=== PATIENT | male | born 1940 | race Caucasian/White ===

== ENCOUNTER 2018-05-29 20:42 | Observation (INO) | payer MEDICARE ==
[2018-05-29 21:52] LABS: Troponin I Less than 0.010 ng/mL (< 0.028)
[2018-05-30 00:27] VITALS: TEMP 97.7
[2018-05-30] MEDS ORDERED: Acetaminophen 325 MG TAB PO PRN (00:29)
[2018-05-30] MEDS ORDERED: Senokot S 8.6-50 MG TAB PO PRN (00:29)
[2018-05-30] MEDS ORDERED: Nitroglycerin 0.4 MG TAB (25 Tab Bottle) PO PRN (00:29)
[2018-05-30] MEDS ORDERED: Acetaminophen 650 MG Suppository PR PRN (00:29)
--- NOTE | 2018-05-30 00:55 | HP ---
PRIMARY CARE PHYSICIAN: Freedom Reddy D.O. CHIEF COMPLAINT: Chest discomfort. HISTORY OF PRESENT ILLNESS: Mr. Nguyen is a pleasant 77-year-old gentleman who was seen at [facility] on 05/30/2018 following transfer from the emergency room at [facility]. He reports that he ate chili, 2 nights ago. Following that, he developed chest discomfort. He descr ibes it as a vibrating sensation over the left side of his chest, on and off, lasting about 10 second s, no known aggravating or relieving factors, not accompanied by shortness of breath, nausea, or ligh theadedness. He does report that he has been having lower extremity swelling. He saw his primary care provider 2 days ago and received an injection as well as a new medication, presumably furosemide. The vibrating sensation is nonradiating. REVIEW OF SYSTEMS: All other systems reviewed and found to be negative. PAST MEDICAL HISTORY: Significant for coronary artery disease, status post PCI with 2 stents, prosta te cancer treated with surgery, dyslipidemia, and hypertension. PAST SURGICAL HISTORY: Prostatectomy and PCI with coronary stents. PSYCHIATRIC HISTORY: Depression. SOCIAL HISTORY: Patient denies tobacco use, alcohol use, or recreational drug use. FAMILY HISTORY: Heart disease in his brother. ALLERGIES: No known drug allergies. CURRENT MEDICATIONS: Aspirin 81 mg daily, atorvastatin 80 mg daily, Coreg 25 mg 2 times a day, furos emide 20 mg daily, lisinopril/hydrochlorothiazide 1 tablet daily, and mirtazapine 30 mg at bedtime. PHYSICAL EXAMINATION: GENERAL: Mr. Nguyen is awake and alert, not in acute distress. VITAL SIGNS: Blood pressure is 129/64, pulse 60, respiratory rate 18, and oxygen saturation 95% on r oom air. He is afebrile. EYES: No scleral icterus. No conjunctival pallor. ENT: Moist mucosal membranes, no oropharyngeal erythema or exudates. NECK: Supple, nontender, trachea is midline. RESPIRATORY: Accessory muscles of breathing are not active. Chest wall movements are symmetric bila terally. LUNGS: Clear to auscultation without wheeze, rhonchi, or crepitations. CARDIOVASCULAR: S1 and S2 are heard, regular. Peripheral pulses palpable. No carotid bruit, no per icardial rub. ABDOMEN: Soft, distended, nontender, bowel sounds are heard. NEUROLOGIC: Cranial nerves II through XII intact. Deep tendon reflexes are 2+. MUSCULOSKELETAL: Power is 5/5 in all 4 extremities. He has bilateral lower extremity edema. SKIN: No rashes or subcutaneous nodules. LYMPHATIC: No cervical lymphadenopathy. PSYCHIATRIC: Normal mood, normal affect, patient is oriented to person, place, and time. LABORATORY DATA: Mr. Nguyen's labs and investigations were reviewed. I reviewed his electrocardiogr am, which shows normal sinus rhythm, no ST changes to suggest an acute coronary syndrome. I also rev iewed his chest x-ray, which does not show any pulmonary infiltrates. He has an unremarkable CBC, un remarkable comprehensive metabolic profile, normal troponin I, normal BNP, and normal creatinine. ASSESSMENT AND PLAN: Mr. Nguyen is a pleasant 77-year-old gentleman who was seen at [facility] on 05/30/2018. His problem list includes: 1. Chest discomfort: Mr. Nguyen is presenting with chest discomfort that is atypical for cardiac pa in. He will be admitted to the hospital for air sampling and monitoring and rechecking cardiac enzymes. Cardi ology service will be consulted for opinion and help with managing his symptoms. 2. Dyslipidemia: We will continue statin. 3. Coronary artery disease. Continue aspirin and beta tylor. 4. Hypertension: Resume home medications, monitor vital signs and titrate antihypertensives as need ed. Many thanks for allowing me to participate in Mr. Stewart' care. Please feel free to contact me with any questions or concerns. LEVEL OF RISK: High. LEVEL OF COMPLEXITY: High.
[2018-05-30 00:58] LABS: Troponin I Less than 0.010 ng/mL (< 0.028)
[2018-05-30 03:46] LABS: #Basophils 0.1 thou/uL (0.0-0.2); #Eosinphils 0.1 thou/uL (0.0-0.7); #Lymphocytes 1.5 thou/uL (1.20-3.40); #Monocytes 0.6 thou/uL (0.11-0.59); #Neutrophils 5.4 thou/uL (1.40-6.50); %Basophils 1.1 % (0.0-1.0); %Eosinophils 1.3 % (0.0-10.0); %Lymphocytes 19.7 % (21.0-51.0); %Monocytes 7.3 % (0.0-10.0); %Neutrophils 70.6 % (42.0-75.0); Hemoglobin 14.3 g/dL (14.0-18.0); Mean Corpuscular HGB CONC 33.4 g/dL (32.0-36.0); Mean Corpuscular Hemoglobin 32.6 pg (27.0-31.0); Mean Corpuscular Volume 97.7 fL (78.0-98.0); Mean Platelet Volume 8.4 fL (7.4-10.4); Platelet Count 225 thou/uL (130-400); RBC Distribution Width 11.8 % (11.5-14.5); Red Blood Cell (RBC) Count 4.38 mill/uL (4.70-6.10); White Blood Cell (WBC) Count 7.6 thou/uL (4.8-10.8)
[2018-05-30 03:54] LABS: Anion Gap 12 mmol/L (10-20); BUN (Urea Nitrogen) 16 mg/dL (8.4-25.7); Calc. Creatinine Clearance 94 mL/min (70-130); Carbon Dioxide 29 mmol/L (23-31); Chloride 105 mmol/L (98-107); Estimated GFR-MDRD 86; Glucose 105 mg/dL (83-110); Potassium 3.6 mmol/L (3.5-5.1); Sodium 142 mmol/L (136-145)
[2018-05-30] MEDS ORDERED: Furosemide 20 MG TAB PO SCH (09:00)
[2018-05-30] MEDS ORDERED: Enoxaparin Sodium 40 MG/0.4 ML SYRINGE SC SCH (09:00)
[2018-05-30] MEDS ORDERED: Aspirin 81 mg Enteric Coated Tablet PO SCH (09:00)
[2018-05-30] MEDS ORDERED: Prevnar 13-Val Conj/PF 0.5 ML SYRINGE IM ONE (09:00)
[2018-05-30] MEDS ORDERED: Carvedilol 25 MG TAB PO SCH (09:00)
[2018-05-30] MEDS ORDERED: Lisinopril/Hydrochlorothiazide 20 mg/12.5 mg Tablet PO SCH (09:00)
[2018-05-30] MEDS ORDERED: Atorvastatin Calcium 40 MG TAB PO SCH (09:00)
[2018-05-30 11:48] VITALS: BP 121/74
--- NOTE | 2018-05-30 15:47 | DIS ---
DATE OF ADMISSION: 05/29/2018 DATE OF DISCHARGE: 05/30/2018 PRIMARY CARE PHYSICIAN: Dr. Reddy. CONSULTANTS: Dr. Nesbitt. PROCEDURES: None. DISCHARGE DIAGNOSES: 1. Chest discomfort. This is Dr. Nesbitt's patient and he would like to do a stress test on the patient, however, the stress lab was unable to get to a stress test today, so Dr. Nesbitt agreed to do the stress test as an outpatient. 2. Dyslipidemia. He will continue his statin. 3. Coronary artery disease. We will continue the aspirin and the beta tylor. 4. Hypertension. We will continue his home meds. REVIEW OF SYSTEMS: Patient was reviewed by me this morning, denying any chest discomfort, shortness of breath, denying any complaints at this time. All other systems were reviewed and found to be negative. PHYSICAL EXAMINATION: VITAL SIGNS: Temperature 97.7, pulse is 53, respirations are 18, blood pressure 150/77, pulse oximetry is 95% on room air. GENERAL: Mr. Nguyen is awake and alert, sitting at the edge of the bed in no acute distress. EYES: Pupils are round and reactive to light. Extraocular muscles are intact. ENT: Moist mucous membranes. NECK: Supple, nontender, trachea is midline. RESPIRATORY: Breath sounds are clear on auscultation bilaterally. No accessory muscles are used. CARDIOVASCULAR: S1, S2. Peripheral pulses are palpable. ABDOMEN: Soft, nontender. Bowel sounds are heard x4. NEUROLOGIC: Cranial nerves II-XII are intact. MUSCULOSKELETAL: Range of motion and strength equal x4. EXTREMITIES: Edema noted bilaterally to lower extremities +1. SKIN: No rashes are noted. LYMPHATIC: No cervical lymphadenopathy. PSYCHIATRIC: Has a normal affect. Patient is alert, oriented to person, place , and time. HOSPITAL COURSE: Mr. Nguyen is a pleasant 77-year-old gentleman who was seen at the hospital in [place] and transferred to the ER at [facility] for further management. He reports that he ate chili 2 nights ago. Following that, he developed some chest discomfort. He describes it as a vibrating sensation over the left side of his chest. He reports it is intermittent, lasts about 10 seconds. Denies any aggravating or relieving factors and denies any shortness of breath, nausea, or lightheadedness with this chest discomfort. He does report that he has been having some swelling in his lower extremities and reports that he went to see his primary care doctor who prescribed a new medication, presumably some Lasix. Dr. Nesbitt was able to see the patient who he follows in the clinic and recommended a stress test. He was comfortable with sending the patient home and will schedule an outpatient stress test for next week as our stress lab could not guarantee a stress test today. The patient agreed to plan. Discharge plan also discussed with Dr. Montaño, who agreed. MEDICATIONS: The patient will be continued on his home medications which includes low dose aspirin 81 mg p.o. daily, pravastatin 80 mg p.o. daily, Coreg 25 mg p.o. b.i.d., Lasix 1 tablet p.o. daily, lisinopril/hydrochlorothiazide 20/ 12.5 one tablet p.o. daily, Remeron 30 mg p.o. at bedtime. ALLERGIES: The patient has no known drug allergies. CONDITION: Patient is stable. DISCHARGE INSTRUCTIONS: The patient will be discharged home. REFFERAL: Follow up with Dr. Reddy within the next week. Dr. Nesbitt told patient to call his office Friday afternoon if he had not been called by then to set up the stress test. [facility]
--- NOTE | 2018-05-30 16:27 | CON ---
DATE OF CONSULTATION: 05/30/2018 HISTORY OF PRESENT ILLNESS: The patient is a 77-year-old gentleman who presents for evaluation of left-sided chest discomfort. The patient has a previous history of coronary artery disease. In 2006, he underwent a cardiac catheterization and found to have a normal left ventricular ejection fraction 55 %-60%, LAD had a 30% proximal lesion,and the left circumflex artery had 30% lesion. There is a 90% lesion in right coronary artery. The patient subsequently underwent PTCA and stent placement to the right coronary artery. The patient has subsequently done very well. He has been free of chest discomfort. The patient was in his usual state of health when he developed left -sided chest discomfort. This lasted for only a few seconds. He states this would then return. This occurred for approximately two days prior to admission. The patient states it started after he had eaten a very large amount of chili. He also reported having pain in his right leg and had received a shot. He had noticed having increasing lower extremity swelling. The patient is noticed having mild increase in chronic edema in his lower extremity swelling. The patient denies having any present chest discomfort. PAST MEDICAL HISTORY: 1. Coronary artery disease. 2. Hypertension. 3. Dyslipidemia. 4. Benign prostatic hypertrophy. 5. Prostate carcinoma. PAST SURGICAL HISTORY: Prostatectomy. SOCIAL HISTORY: Nonsmoker. FAMILY HISTORY: Strong family history of coronary artery disease. MEDICATIONS ON ADMISSION: Coreg 25 b.i.d., Lasix 20 daily, aspirin 81 daily, lisinopril/HCTZ one tablet daily, and Lipitor 80 at bedtime. REVIEW OF SYSTEMS: Ten-point system otherwise unremarkable except for left hip pain. PHYSICAL EXAMINATION: GENERAL: Well-developed gentleman in no acute distress. VITAL SIGNS: Blood pressure 160/80. NECK: No jugular distention, no carotid bruits. LUNGS: Clear to auscultation. HEART: Regular rate and rhythm, normal S1, S2, no murmurs. ABDOMEN: Nondistended. EXTREMITIES: Showed trace edema. SKIN: Warm and dry. LABORATORY DATA AND IMAGING DATA: Sodium 142, potassium 3.6, chloride 105, bicarbonate 29, BUN 16, creatinine 0.87, troponin less than 0.01. White blood cell count 7.6, hemoglobin 14.3, hematocrit 42.8 and his platelets are 225. His EKG revealed sinus bradycardia with left ventricular hypertrophy. IMPRESSION: 1. Chest pain, atypical. 2. History of percutaneous transluminal coronary angioplasty and stent placement in right coronary artery. 3. Hypertension. 4. Dyslipidemia. This gentleman presents with chest pain of very brief duration. The patient denies having any chest pain with exertion. From a cardiac standpoint, I think this is unlikely to be due to ischemic heart disease. Would recommend the patient to undergo stress testing. We will follow this patient with you through his hospitalization. PLAN: Proceed with cardiac stress testing. [facility]
[2018-05-30] MEDS ORDERED: Mirtazapine 30 MG TAB PO SCH (21:00)
== END 2018-05-30 13:29 | disposition home or self-care (01) ==
LOC: ERS 20:42 → 2SW 21:40
PROVIDERS: ADMIT Internal Medicine; ATTEND Internal Medicine
DX: R07.89 Other chest pain (principal); I25.10 Atherosclerotic heart disease of native coronary artery without angina pectoris; E78.5 Hyperlipidemia, unspecified; F32.9 Major depressive disorder, single episode, unspecified; I10 Essential (primary) hypertension; N40.0 Benign prostatic hyperplasia without lower urinary tract symptoms; Z79.82 Long term (current) use of aspirin; Z79.899 Other long term (current) drug therapy; Z95.5 Presence of coronary angioplasty implant and graft
CPT/HCPCS: 80048; 84484 ×2; 85025; 90670; 93005; 94760 ×2; 96372; 99285; G0009; G0378 ×2; 36415; 90471; J1650